=== PATIENT | male | born 1950 | race Caucasian/White ===

== ENCOUNTER 2016-07-16 19:21 | Emergency (ER) | payer OTHER ==
--- NOTE | ~2016-07-16 | EKG ---
PATIENT: LUCILA SHEETS UNIT #: [id number] Ventricular Rate: 89 BPM Atrial Rate: 89 BPM P-R Interval: 140 ms QRS Duration: 68 ms Q-T Interval: 390 ms QTC Calculation(Bezet): 474 ms P [place]: 63 degrees Calculated R [place]: 7 degrees Calculated T [place]: 26 degrees Diagnosis Line: Normal sinus rhythm Diagnosis Line: Low voltage QRS Diagnosis Line: Septal infarct , age undetermined Diagnosis Line: Abnormal ECG Diagnosis Line: No previous ECGs available Diagnosis Line: Confirmed by JASMIN WALKER MD ([id number]) on Diagnosis Line: 07/20/2016 3:57:05 PM INTERPRETING MD: AARON ALONSO
--- NOTE | ~2016-07-16 | CT2 ---
[facility] A Service of [facility] RADIOLOGY TEXT RESULTS PATIENT: LUCILA SHEETS LOCATION: [place] : [birth year] UNIT #: [id number] AGE: [address]: Mak Marr MD SEX: M ORDER DR: [id number] [facility] [address] [place], [place] [address] [id number] E MR#: [id number] Acc #: [id number] NAME: LUCILA SHEETS : 1950 SEX: M STUDY DATE/TIME: 07/16/2016 20:39 UNIT: [place] ROOM: STUDY DESCRIPTION: CT Abd and Pelv W Cont Attending Physician: Mak Marr M.D. Ordering Physician: Mak Marr M.D. Primary Care Physician: Generic Doctor Not In System MEDICAL IMAGING REPORT This report is preliminary unless electronic signature is present EXAM CT abdomen and pelvis with contrast 07/16/[address] abdomen and pelvis without IV contrast and multiplanar reformats. This CT exam was performed with one or more of the following radiation dose reduction techniques: automatic exposure control, adjustment of mA and/or kV according to patient size, and iterative reconstruction. COMPARISON None. HISTORY Nausea and vomiting and diarrhea for 1 day. FINDINGS The lung bases are normal. ABDOMEN: There may be mild fatty infiltration of the liver, but it is otherwise normal. The gallbladder is normal. The pancreas and spleen are normal. The kidneys are normal with the exception of the left renal upper pole simple cyst and the adrenal glands are normal. The aorta is normal in caliber. There is no bowel obstruction, intraabdominal mass, or inflammatory change. PELVIS: The appendix is normal. There is no hernia or bowel obstruction. There is no pelvic mass or adenopathy. There is mild spinal degenerative change but no acute bony abnormality. IMPRESSION [facility] A Service of [facility] RADIOLOGY TEXT RESULTS PATIENT: LUCILA SHEETS LOCATION: [place] : [birth year] UNIT #: [id number] AGE: [address]: Mak Marr MD SEX: M ORDER DR: 1. Negative CT abdomen and pelvis. Slight fatty infiltration of the live, but no renal or bowel or biliary obstruction or other acute abnormality. 2. Normal appendix. Dictated by... Jb Diaz M.D. THIS IS AN ELECTRONICALLY VERIFIED REPORT Jb Diaz M.D. at 07/19/2016 4:33 PM PATIENCE/mavis TD: 07/17/2016 14:26 JOB #: [id number] MEDICAL IMAGING REPORT COPY
[2016-07-16 19:27] LABS: BASOPHIL# 0.1 X10e3 (0-0.3); BASOPHIL% 0.8 % (0-2.5); DIFF IND NO; EOSINOPHIL# 0.1 X10e3 (0-0.7); EOSINOPHIL% 0.4 % (0.0-7.0); HEMATOCRIT 48.1 % (38.0-50.0); HEMOGLOBIN 16.2 gm/dL (13.0-16.0); LYMPHOCYTE# 1.8 X10e3 (1.0-3.5); LYMPHOCYTE% 13.6 % (17.0-45.0); MEAN CORPUSCULAR HEMOGLOBIN 28.6 PG (28-34); MEAN CORPUSCULAR HGB CONC 33.6 g/dL (30-36); MEAN PLATELET VOLUME 10.6 FL (6.5-11.5); MONOCYTE# 0.6 X10e3 (0-1.0); MONOCYTE% 4.8 % (3.0-12.0); NEUTROPHIL# 10.7 X10e3 (1.5-7.1); NEUTROPHIL% 80.4 % (40-75); PLATELET COUNT 235 X10e3 (140-420); RED BLOOD COUNT 5.66 X10e (3.90-5.60); RED CELL DISTRIBUTION WIDTH 15.3 % (11.0-15.5); WHITE BLOOD COUNT 13.4 X10e3 (4.0-10.5)
[2016-07-16 19:46] LABS: ALBUMIN SERUM 4.3 g/dL (3.5-5.0); ALKALINE PHOSPHATASE 86 U/L (32-92); ALT (SGPT) 39 U/L (10-40); AST (SGOT) 29 U/L (10-42); BILIRUBIN, DIRECT 0.1 mg/dL (0.0-0.2); BILIRUBIN,INDIRECT 0.8 mg/dL (0.0-0.9); BILIRUBIN,TOTAL 0.9 mg/dL (0.2-2.0); BLOOD UREA NITROGEN 17 mg/dL (9-23); CALCIUM SERUM 9.3 mg/dL (8.4-10.2); CARBON DIOXIDE 20 mmol/L (22-31); CHLORIDE 103 mmol/L (100-111); GLOM FILT RATE Estimated ABOVE60 mL/min (>60); GLUCOSE FASTING 207 mg/dL (70-110); LIPASE 14 U/L (22-51); POTASSIUM 3.6 mmol/L (3.5-5.1); PROTEIN TOTAL SERUM 7.7 g/dL (6.0-8.3); SODIUM 135 mmol/L (135-145)
[2016-07-16 19:47] LABS: POC - CKMB 2.3 ng/mL (0.0-7.9); POC - TROPONIN <0.05 ng/mL (<=0.05)
[2016-07-16] MEDS ORDERED: GLUCOPHAGE500 M1 PO (20:53)
[2016-07-16] MEDS ORDERED: OMEPRAZOLE40 M1 PO (20:54)
[2016-07-16] MEDS ORDERED: FLOMAX0.4 M1 PO (20:55)
[2016-07-16] MEDS ORDERED: HYDROCHLOROTHIA25 MG PO (20:55)
[2016-07-16] MEDS ORDERED: BUPROPION HCL150 M3 PO (20:57)
[2016-07-16] MEDS ORDERED: TOPIRAMATE25 MG PO (20:59)
[2016-07-16] MEDS ORDERED: MORPHINE SULFAT30 M3 PO (20:59)
[2016-07-16] MEDS ORDERED: ASPIRIN81 MG PO (21:00)
[2016-07-16] MEDS ORDERED: [UNRECOGNIZED DRUG - OTHER] PO (21:01)
[2016-07-16] MEDS ORDERED: CENTRUM SILVER PO (21:01)
[2016-07-16 21:02] LABS: URINE SOURCE CLEAN CATCH
[2016-07-16] MEDS ORDERED: HUMALOG KW200 UNIT/1 SUBQ (21:04)
[2016-07-16] MEDS ORDERED: VICTOZA0.6 MG/0.1 SUBQ (21:06)
[2016-07-16 21:11] LABS: URINE APPEARANCE CLEAR; URINE BILIRUBIN NEG (NEG); URINE BLOOD NEG (NEG); URINE COLOR YELLOW; URINE GLUCOSE NEG (NEG); URINE KETONE 1+ (NEG); URINE LEUKOCYTE ESTERASE NEG (NEG); URINE NITRATE NEG (NEG); URINE PH 5.5 (5-8); URINE PROTEIN NEG (NEG); URINE SPECIFIC GRAVITY 1.021 (1.003-1.035); URINE UROBILINOGEN 0.2 MG/DL (NEG)
[2016-07-16 21:14] LABS: CULTURE INDICATED? NO
[2016-07-16 21:47] LABS: POC - CKMB <1.0 ng/mL (0.0-7.9); POC - TROPONIN <0.05 ng/mL (<=0.05)
== END 2016-07-16 22:00 | disposition home or self-care (01) ==
LOC: CED 19:21
PROVIDERS: Emergency Medicine
DX: R11.2 Nausea with vomiting, unspecified (principal); I10 Essential (primary) hypertension; E11.9 Type 2 diabetes mellitus without complications; Z87.891 Personal history of nicotine dependence; Z79.899 Other long term (current) drug therapy
CPT/HCPCS: 36415; 74177; 80048; 80076; 81003; 82553; 83690; 84484; 85025; 93005; 96360; 99284; J2405; J2930; Q9967

== ENCOUNTER 2016-10-06 14:51 | Emergency (ER) | payer OTHER ==
[~2016-10-06 14:51] MED LIST: ASPIRIN81 MG PO; BUPROPION HCL150 M3 PO; CENTRUM SILVER PO; FLOMAX0.4 M1 PO; GLUCOPHAGE500 M1 PO; HUMALOG KW200 UNIT/1 SUBQ; HYDROCHLOROTHIA25 MG PO; MORPHINE SULFAT30 M3 PO; OMEPRAZOLE40 M1 PO; TOPIRAMATE25 MG PO; VICTOZA0.6 MG/0.1 SUBQ; [UNRECOGNIZED DRUG - OTHER] PO
== END 2016-10-06 16:01 | disposition home or self-care (01) ==
LOC: CED 14:51 → CFTX 14:51
DX: M65.841 Other synovitis and tenosynovitis, right hand (principal); Z79.899 Other long term (current) drug therapy; Z79.82 Long term (current) use of aspirin
CPT/HCPCS: 29125; 96372; 99283; J1885